=== PATIENT | female | born 1960 | race Caucasian/White ===

== ENCOUNTER 2020-08-09 13:37 | Inpatient (IN) ==
[~2020-08-09 13:37] MED LIST: Buffered Lidocaine 1% SYRIN 1 ml INTRADERM ONE; Lactated Ringers 1000 ml BAG 1,000 ML IV SCH
[2020-08-09] MEDS ORDERED: Clindamycin 900 MG/D5W BAG 900 MG/50 ML BAG IVPB ONE (14:16)
[2020-08-09] MEDS ORDERED: Buffered Lidocaine 1% SYRIN 1 ml INTRADERM ONE (14:16)
[2020-08-09] MEDS ORDERED: Propofol 10 MG/ML 20 ML BTL ONE (15:12)
[2020-08-09] MEDS ORDERED: Lidocaine 2% PF 5 ML VIAL ONE (15:12)
[2020-08-09] MEDS ORDERED: fentaNYL 250 mcg/5 ml 50 MCG/ML 5 ml VIAL (250 MCG) ONE (15:12)
[2020-08-09] MEDS ORDERED: Midazolam 2 mg/2 ml VIAL 1 mg/ml 2 ml VIAL (2 mg) ONE (15:12)
[2020-08-09] MEDS ORDERED: Ondansetron 4 mg VIAL 2 MG/ML 2 ml VIAL ONE (15:12)
[2020-08-09] MEDS ORDERED: Dexamethasone IV 4 MG/ML VIAL 1 ml VIAL ONE (15:12)
[2020-08-09] MEDS ORDERED: Ketamine HCL 50 mg/ml 10 ml VIAL (500 MG) ONE (16:31)
[2020-08-09] MEDS ORDERED: EPHEDrine (Pressors) 50 MG/ML VIAL ONE (16:46)
[2020-08-09] MEDS ORDERED: HYDROmorphone 1 MG/1 ML SYRINGE ONE ×2 (16:52→17:41)
[2020-08-09] MEDS ORDERED: diPHENhydraMINE 25 mg TAB PO PRN (17:09)
[2020-08-09] MEDS ORDERED: Ondansetron ODT 4 mg TAB 4 MG TAB PO PRN (17:09)
[2020-08-09] MEDS ORDERED: Ondansetron 4 mg VIAL 2 MG/ML 2 ml VIAL IV PRN (17:09)
[2020-08-09] MEDS ORDERED: Magnesium Hydroxide LIQ 30 ML UDC PO PRN (17:09)
[2020-08-09] MEDS ORDERED: diPHENhydraMINE IV 50 MG/ML 1 ml VIAL (BENADRYL) IV PRN ×2 (17:09→17:37)
[2020-08-09] MEDS ORDERED: Morphine 2 MG/ML SYRINGE IV PRN (17:15)
[2020-08-09] MEDS ORDERED: Naloxone 0.4 mg VIAL 0.4 mg/ml 1 ml VIAL IV PRN (17:37)
[2020-08-09] MEDS ORDERED: Prochlorperazine 5 mg/ml 2 ml VIAL (10 mg) IV PRN (17:37)
[2020-08-09] MEDS ORDERED: hydrALAZINE 20 mg/ml 1 ML Vial IV IV SLOW PU PRN (17:38)
[2020-08-09] MEDS: HYDROmorphone 1 MG/1 ML SYRINGE IV PRN ×5 (17:42→18:21)
[2020-08-09] MEDS ORDERED: hydrALAZINE 20 mg/ml 1 ML Vial IV ONE (18:07)
[2020-08-09] MEDS ORDERED: Polyethylene Glycol 3350 17 GM PACKET PO PRN (18:17)
[2020-08-09] MEDS: Lactated Ringers 1000 ml BAG 1,000 ML IV SCH (19:45)
[2020-08-09] MEDS: Magnesium Hydroxide LIQ 30 ML UDC PO SCH (20:06)
[2020-08-09] MEDS: Cholecalciferol (VIT D3) 1,000 unit TAB PO SCH (20:06)
[2020-08-09] MEDS: Latanoprost 0.005% 2.5 ml BTL BOTH EYES SCH (21:04)
[2020-08-09] MEDS: Clindamycin 600 MG/D5W BAG 600 MG/50 ML BAG IV SCH (22:04)
[2020-08-10] MEDS: CRANBERRY EXTRACT 500 MG PO SCH ×3 (01:10→20:59)
[2020-08-10 05:59] LABS: Hematocrit 34 % (35-47); Mean Corpuscular HGB Conc 36 g/dL (31-36); Mean Corpuscular Hemoglobin 32 pg (27-31); Mean Corpuscular Volume 88 fL (80-97); Mean Platelet Volume 7.4 fL (7.4-10.4); Platelet Count 323 10^3/uL (150-450); Red Blood Count 3.81 10^6 /uL (3.70-4.87); Red Cell Distribution Width 13 % (10-15); White Blood Count 10.9 10^3/uL (3.5-10.8)
[2020-08-10] MEDS: Clindamycin 600 MG/D5W BAG 600 MG/50 ML BAG IV SCH ×2 (08:44→15:31)
[2020-08-10] MEDS: Vitamin THERAPEUTIC TAB PO SCH (08:56)
[2020-08-10] MEDS: Cholecalciferol (VIT D3) 1,000 unit TAB PO SCH ×2 (08:58→20:58)
[2020-08-10] MEDS: Magnesium Hydroxide LIQ 30 ML UDC PO SCH ×2 (09:01→23:04)
[2020-08-10] MEDS: Lactated Ringers 1000 ml BAG 1,000 ML IV SCH (10:47)
[2020-08-10] MEDS: Enoxaparin 40 MG/0.4 ML SYR SUBCUT SCH (13:12)
[2020-08-10] MEDS: POTASSIUM 75 MG PO SCH (13:22)
[2020-08-10] MEDS: Lactulose 30 ml UDC PO PRN (20:58)
[2020-08-10] MEDS: Latanoprost 0.005% 2.5 ml BTL BOTH EYES SCH (21:04)
[2020-08-11 06:41] LABS: Hematocrit 34 % (35-47); Hemoglobin 11.9 g/dL (12.0-16.0); Mean Corpuscular HGB Conc 35 g/dL (31-36); Mean Corpuscular Hemoglobin 31 pg (27-31); Mean Corpuscular Volume 89 fL (80-97); Mean Platelet Volume 7.6 fL (7.4-10.4); Platelet Count 279 10^3/uL (150-450); Red Blood Count 3.81 10^6 /uL (3.70-4.87); Red Cell Distribution Width 13 % (10-15); White Blood Count 7.5 10^3/uL (3.5-10.8)
[2020-08-11] MEDS: Magnesium Hydroxide LIQ 30 ML UDC PO SCH ×3 (09:44→21:34)
[2020-08-11] MEDS: Vitamin THERAPEUTIC TAB PO SCH (09:45)
[2020-08-11] MEDS: Cholecalciferol (VIT D3) 1,000 unit TAB PO SCH ×2 (09:45→21:33)
[2020-08-11] MEDS: CRANBERRY EXTRACT 500 MG PO SCH ×3 (09:49→22:27)
[2020-08-11] MEDS: Lactulose 30 ml UDC PO PRN ×2 (09:54→21:31)
[2020-08-11] MEDS: Enoxaparin 40 MG/0.4 ML SYR SUBCUT SCH (12:27)
[2020-08-11] MEDS: POTASSIUM 75 MG PO SCH (12:28)
[2020-08-11] MEDS: Dextran 70/Hypromellose Tears Eye Drops 15 ml BTL (for Artificials Tears) BOTH EYES PRN (12:30)
[2020-08-11] MEDS: Latanoprost 0.005% 2.5 ml BTL BOTH EYES SCH (23:00)
[2020-08-12 06:17] LABS: Hematocrit 36 % (35-47); Mean Corpuscular HGB Conc 34 g/dL (31-36); Mean Corpuscular Hemoglobin 31 pg (27-31); Mean Corpuscular Volume 90 fL (80-97); Mean Platelet Volume 7.7 fL (7.4-10.4); Platelet Count 275 10^3/uL (150-450); Red Blood Count 3.93 10^6 /uL (3.70-4.87); Red Cell Distribution Width 13 % (10-15); White Blood Count 6.6 10^3/uL (3.5-10.8)
[2020-08-12] MEDS: Magnesium Hydroxide LIQ 30 ML UDC PO SCH ×3 (08:39→23:36)
[2020-08-12] MEDS: Lactulose 30 ml UDC PO PRN (08:39)
[2020-08-12] MEDS: Cholecalciferol (VIT D3) 1,000 unit TAB PO SCH ×2 (08:40→22:25)
[2020-08-12] MEDS: CRANBERRY EXTRACT 500 MG PO SCH ×2 (08:40→22:23)
[2020-08-12] MEDS: Vitamin THERAPEUTIC TAB PO SCH (08:40)
[2020-08-12] MEDS: Enoxaparin 40 MG/0.4 ML SYR SUBCUT SCH (12:26)
[2020-08-12] MEDS: POTASSIUM 75 MG PO SCH (12:27)
[2020-08-12] MEDS: Hemorrhoidal OINT 1 TUBE PR PRN (22:26)
[2020-08-12] MEDS: Latanoprost 0.005% 2.5 ml BTL BOTH EYES SCH (22:35)
[2020-08-13 06:57] LABS: Hematocrit 36 % (35-47); Hemoglobin 12.3 g/dL (12.0-16.0); Mean Corpuscular HGB Conc 34 g/dL (31-36); Mean Corpuscular Hemoglobin 31 pg (27-31); Mean Corpuscular Volume 90 fL (80-97); Mean Platelet Volume 7.2 fL (7.4-10.4); Platelet Count 278 10^3/uL (150-450); Red Blood Count 4.03 10^6 /uL (3.70-4.87); Red Cell Distribution Width 13 % (10-15); White Blood Count 7.7 10^3/uL (3.5-10.8)
[2020-08-13] MEDS: Cholecalciferol (VIT D3) 1,000 unit TAB PO SCH ×2 (09:57→21:24)
[2020-08-13] MEDS: Lactulose 30 ml UDC PO PRN ×2 (09:57→21:34)
[2020-08-13] MEDS: Vitamin THERAPEUTIC TAB PO SCH (09:57)
[2020-08-13] MEDS: Magnesium Hydroxide LIQ 30 ML UDC PO SCH ×2 (09:58→21:26)
[2020-08-13] MEDS: CRANBERRY EXTRACT 500 MG PO SCH ×2 (09:58→21:24)
[2020-08-13 11:51] LABS: Urine Appearance Cloudy; Urine Bilirubin Negative (Negative); Urine Blood 1+ (Negative); Urine Color Yellow; Urine Glucose Negative (Negative); Urine Ketones Negative (Negative); Urine Nitrite Negative (Negative); Urine Protein Negative (Negative); Urine Specific Gravity 1.005 (1.010-1.030); Urine Urobilinogen Negative (Negative)
[2020-08-13 12:05] LABS: Urine Bacteria 1+ (Absent); Urine Red Blood Cell 1+(3-5/hpf) (Absent); Urine Squamous Epithelial Cell Present (Absent); Urine White Blood Cell 1+(6-10/hpf) (Absent)
[2020-08-13] MEDS: Enoxaparin 40 MG/0.4 ML SYR SUBCUT SCH (12:43)
[2020-08-13] MEDS: POTASSIUM 75 MG PO SCH (12:45)
[2020-08-13] MEDS: Dextran 70/Hypromellose Tears Eye Drops 15 ml BTL (for Artificials Tears) BOTH EYES PRN (14:42)
[2020-08-13] MEDS: Latanoprost 0.005% 2.5 ml BTL BOTH EYES SCH (21:34)
[2020-08-14 06:03] LABS: Hematocrit 36 % (35-47); Hemoglobin 12.6 g/dL (12.0-16.0); Mean Corpuscular HGB Conc 35 g/dL (31-36); Mean Corpuscular Hemoglobin 31 pg (27-31); Mean Corpuscular Volume 90 fL (80-97); Mean Platelet Volume 7.7 fL (7.4-10.4); Platelet Count 279 10^3/uL (150-450); Red Blood Count 4.06 10^6 /uL (3.70-4.87); Red Cell Distribution Width 13 % (10-15); White Blood Count 7.9 10^3/uL (3.5-10.8)
[2020-08-14] MEDS: Lactulose 30 ml UDC PO PRN (08:36)
[2020-08-14] MEDS: Vitamin THERAPEUTIC TAB PO SCH (08:38)
[2020-08-14] MEDS: CRANBERRY EXTRACT 500 MG PO SCH ×2 (08:39→20:16)
[2020-08-14] MEDS: Cholecalciferol (VIT D3) 1,000 unit TAB PO SCH ×2 (08:39→20:14)
[2020-08-14] MEDS: Magnesium Hydroxide LIQ 30 ML UDC PO SCH ×2 (08:56→20:18)
[2020-08-14] MEDS: Hemorrhoidal OINT 1 TUBE PR PRN ×2 (09:46→14:54)
[2020-08-14] MEDS: Enoxaparin 40 MG/0.4 ML SYR SUBCUT SCH (11:57)
[2020-08-14] MEDS: POTASSIUM 75 MG PO SCH (12:00)
[2020-08-14] MEDS: Latanoprost 0.005% 2.5 ml BTL BOTH EYES SCH (20:18)
[2020-08-15] MEDS: Vitamin THERAPEUTIC TAB PO SCH (08:40)
[2020-08-15] MEDS: Cholecalciferol (VIT D3) 1,000 unit TAB PO SCH ×2 (08:40→22:23)
[2020-08-15] MEDS: CRANBERRY EXTRACT 500 MG PO SCH ×2 (08:41→22:24)
[2020-08-15] MEDS: Lactulose 30 ml UDC PO PRN (08:45)
[2020-08-15] MEDS: Magnesium Hydroxide LIQ 30 ML UDC PO SCH ×2 (08:45→22:08)
[2020-08-15] MEDS: Dextran 70/Hypromellose Tears Eye Drops 15 ml BTL (for Artificials Tears) BOTH EYES PRN ×2 (11:49→14:58)
[2020-08-15] MEDS: Enoxaparin 40 MG/0.4 ML SYR SUBCUT SCH (11:49)
[2020-08-15] MEDS: Hemorrhoidal OINT 1 TUBE PR PRN (11:49)
[2020-08-15] MEDS: POTASSIUM 75 MG PO SCH (12:58)
[2020-08-15] MEDS: Latanoprost 0.005% 2.5 ml BTL BOTH EYES SCH (22:26)
[2020-08-16] MEDS: Dextran 70/Hypromellose Tears Eye Drops 15 ml BTL (for Artificials Tears) BOTH EYES PRN ×2 (06:40→12:46)
[2020-08-16] MEDS: Vitamin THERAPEUTIC TAB PO SCH (08:18)
[2020-08-16] MEDS: Cholecalciferol (VIT D3) 1,000 unit TAB PO SCH ×2 (08:18→20:56)
[2020-08-16] MEDS: CRANBERRY EXTRACT 500 MG PO SCH ×2 (08:19→20:56)
[2020-08-16] MEDS: Magnesium Hydroxide LIQ 30 ML UDC PO SCH ×2 (08:19→20:57)
[2020-08-16] MEDS: POTASSIUM 75 MG PO SCH (12:44)
[2020-08-16] MEDS: Enoxaparin 40 MG/0.4 ML SYR SUBCUT SCH (12:46)
[2020-08-16] MEDS: Latanoprost 0.005% 2.5 ml BTL BOTH EYES SCH (21:00)
[2020-08-17] MEDS: Vitamin THERAPEUTIC TAB PO SCH (09:46)
[2020-08-17] MEDS: Cholecalciferol (VIT D3) 1,000 unit TAB PO SCH (09:46)
[2020-08-17] MEDS: CRANBERRY EXTRACT 500 MG PO SCH (09:50)
[2020-08-17] MEDS: Dextran 70/Hypromellose Tears Eye Drops 15 ml BTL (for Artificials Tears) BOTH EYES PRN (09:55)
[2020-08-17] MEDS: Magnesium Hydroxide LIQ 30 ML UDC PO SCH (10:16)
[2020-08-17 11:07] VITALS: BP 142/60
[2020-08-17] MEDS: POTASSIUM 75 MG PO SCH (11:50)
[2020-08-17] MEDS: Enoxaparin 40 MG/0.4 ML SYR SUBCUT SCH (11:55)
[2020-08-17] MEDS ORDERED: Senna TAB 8.6 mg TAB PO SCH (21:00)
== END 2020-08-17 15:15 | DRG 494 ==
LOC: INTOOBSV 13:37 → AA 13:37 → EDSTATUS 14:45 → SSU 18:51
PROVIDERS: ADMIT Orthopaedic Surgery; ATTEND Orthopaedic Surgery

== ENCOUNTER 2024-04-23 07:56 | Observation (INO) ==
[~2024-04-23 07:56] MED LIST changes: -Buffered Lidocaine 1% SYRIN 1 ml INTRADERM ONE; -Lactated Ringers 1000 ml BAG 1,000 ML IV SCH; +NS 0.45% 1000 ml BAG 1,000 ML IV SCH; +Naloxone 0.4 mg VIAL 0.4 mg/ml 1 ml VIAL IV PRN; +Ondansetron 4 mg VIAL 2 MG/ML 2 ml VIAL IV PRN; +ROPIVACAINE 5 MG/ML 30 ML BTL (0.5%) ONE; +Ropivacaine 0.2% 2 MG/ML VIAL ONE
[2024-04-23] MEDS ORDERED: fentaNYL 100 mcg/2 ml 50 MCG/ML VIAL ONE ×2 (08:07→11:31)
[2024-04-23] MEDS ORDERED: Ondansetron 4 mg VIAL 2 MG/ML 2 ml VIAL ONE (08:07)
[2024-04-23] MEDS ORDERED: Lidocaine 2% PF 5 ML VIAL ONE (08:07)
[2024-04-23] MEDS ORDERED: Rocuronium 50 mg VIAL 10 mg/ml 5 ml VIAL (50 mg) ONE ×2 (08:07→08:14)
[2024-04-23] MEDS ORDERED: Propofol 10 MG/ML 20 ML BTL ONE ×2 (08:07→08:14)
[2024-04-23] MEDS ORDERED: Dexamethasone IV 4 MG/ML VIAL 1 ml VIAL ONE (08:07)
[2024-04-23] MEDS ORDERED: Midazolam 5 mg/5 ml VIAL 1 mg/ml 5 ml VIAL (5 mg) ONE (08:07)
[2024-04-23] MEDS ORDERED: ceFAZolin 2 GM PREMIX 2 GM/50 ML BAG ONE (08:42)
[2024-04-23] MEDS: Lactated Ringers 1000 ml BAG 1,000 ML IV SCH ×2 (08:45→16:34)
[2024-04-23] MEDS: Buffered Lidocaine 1% SYRIN 1 ml INTRADERM ONE (08:45)
[2024-04-23] MEDS ORDERED: Bupivacaine 0.25% SDV 30 ML ONE (09:22)
[2024-04-23] MEDS ORDERED: Phenylephrine 40 mcg/mL 10mL (400mcg) SYRINGE ONE (09:43)
[2024-04-23] MEDS ORDERED: ceFAZolin VIAL VIAL ONE (10:10)
[2024-04-23] MEDS: fentaNYL 100 mcg/2 ml 50 MCG/ML VIAL IV PRN (11:32)
[2024-04-23] MEDS ORDERED: Ondansetron ODT 4 mg TAB 4 MG TAB PO PRN (13:06)
[2024-04-23] MEDS ORDERED: Ondansetron 4 mg VIAL 2 MG/ML 2 ml VIAL IV PRN (13:06)
[2024-04-23] MEDS ORDERED: Morphine 2 MG/ML SYRINGE IV PRN (13:06)
[2024-04-23] MEDS ORDERED: Dextran 70/Hypromellose Tears Eye Drops 15 ml BTL (for Artificials Tears) BOTH EYES PRN (13:17)
[2024-04-23 14:19] LABS: Rapid COVID-19 Molecular Undetected (Undetected)
[2024-04-23] MEDS ORDERED: Acetaminophen IV 1 GM/100ML 1,000 MG/100 ML BAG IV ONE (15:11)
[2024-04-23] MEDS: Acetaminophen IV 1 GM/100ML 1,000 MG/100 ML BAG IV ONE (15:15)
[2024-04-23] MEDS: ceFAZolin 1 GM ADVAN 1 GM in NS 0.9% 50 ML 50 ML IVPB SCH (17:53)
[2024-04-23] MEDS: Latanoprost 0.005% 2.5 ml BTL BOTH EYES SCH (20:46)
[2024-04-24 06:01] LABS: Hematocrit 37.6 % (35-45); Hemoglobin 12.5 g/dL (11.5-14.3); Mean Platelet Volume 8.1 fL (7.5-11.2); Platelet Count 217 10^3/uL (150-450)
[2024-04-24 06:44] LABS: Creatinine, Serum 0.56 mg/dL (0.51-0.95); Potassium 4.1 mmol/L (3.5-5.0); eGFR CKD-EPI 102.5 (>60)
[2024-04-24] MEDS: Cholecalciferol (VIT D3) 1,000 unit TAB PO SCH (08:52)
[2024-04-24] MEDS: Vitamin THERAPEUTIC TAB PO SCH (08:53)
[2024-04-25 06:16] LABS: Hematocrit 36.1 % (35-45); Hemoglobin 12.1 g/dL (11.5-14.3); Mean Platelet Volume 8.1 fL (7.5-11.2); Platelet Count 202 10^3/uL (150-450)
[2024-04-25] MEDS: Lactulose 30 ml UDC PO PRN (18:15)
[2024-04-26 08:15] LABS: Hematocrit 38.5 % (35-45); Hemoglobin 13.1 g/dL (11.5-14.3); Mean Platelet Volume 8.2 fL (7.5-11.2); Platelet Count 219 10^3/uL (150-450)
[2024-04-26] MEDS: Nystatin TOP POWDER 15 GM BTL TOPICAL SCH (21:18)
[2024-04-27] MEDS: Magnesium Hydroxide LIQ 30 ML UDC PO PRN (05:42)
[2024-04-27 06:49] LABS: Hematocrit 40.8 % (35-45); Hemoglobin 13.8 g/dL (11.5-14.3); Mean Platelet Volume 8.1 fL (7.5-11.2); Platelet Count 231 10^3/uL (150-450)
[2024-04-28 06:25] LABS: Hematocrit 39.6 % (35-45); Hemoglobin 13.5 g/dL (11.5-14.3); Mean Platelet Volume 8.2 fL (7.5-11.2); Platelet Count 261 10^3/uL (150-450)
[2024-04-30 10:07] VITALS: BP 142/78
== END 2024-04-30 11:10 ==
LOC: OR 07:56 → EDSTATUS 09:00 → SSU 16:23 → INTOOBSV 16:23
PROVIDERS: ADMIT Orthopaedic Surgery; ATTEND Orthopaedic Surgery

== ENCOUNTER 2024-04-30 10:13 | Inpatient (IN) ==
[2024-04-30] MEDS ORDERED: Magnesium Hydroxide LIQ 30 ML UDC PO PRN (13:34)
[2024-04-30] MEDS ORDERED: Senna TAB 8.6 mg TAB PO PRN (13:34)
[2024-04-30] MEDS: Nystatin TOP POWDER 15 GM BTL TOPICAL SCH (20:32)
[2024-05-01] MEDS: Latanoprost 0.005% 2.5 ml BTL BOTH EYES ONE (00:23)
[2024-05-01] MEDS: Latanoprost 0.005% 2.5 ml BTL BOTH EYES SCH (01:15)
[2024-05-01] MEDS: CRANBERRY 15000 MG PO SCH (08:39)
[2024-05-01 10:08] LABS: ABS Eosinophils 0.3 10^3/uL (0.0-0.5); ABS Lymphocytes 1.5 10^3/uL (1.0-4.8); ABS Monocytes 0.8 10^3/uL (0.0-0.9); ABS Neutrophils 5.3 10^3/uL (1.5-7.6); Eosinophil % 3.5 %; Hematocrit 38.3 % (35-45); Hemoglobin 13.1 g/dL (11.5-14.3); Lymphocyte % 19.4 %; Mean Corpuscular Hgb Conc 34.2 g/dL (31-36); Mean Corpuscular Volume 90.7 fL (80-97); Mean Platelet Volume 7.7 fL (7.5-11.2); Platelet Count 252 10^3/uL (150-450); Red Blood Count 4.22 10^6/uL (3.63-4.92); Red Cell Distribution Width 13.1 % (12-17); White Blood Count 7.9 10^3/uL (3.8-11.8)
[2024-05-01 10:40] LABS: Albumin 4.2 g/dL (3.2-5.2); Calcium 9.4 mg/dL (8.6-10.3); Creatinine, Serum 0.6 mg/dL (0.51-0.95); Globulin 2.1 g/dL (2-4); Potassium 4.3 mmol/L (3.5-5.0); Total Bilirubin 0.6 mg/dL (0.2-1.0); Total Protein 6.3 g/dL (6.4-8.9); eGFR CKD-EPI 100.8 (>60)
[2024-05-01] MEDS: Polyethylene Glycol 3350 17 GM PACKET PO SCH (12:26)
[2024-05-01] MEDS: Pneumococcal 20-Valent Conj 0.5 ML SYR Vaccine IM ONE (12:30)
[2024-05-01] MEDS: [UNRECOGNIZED DRUG - REMARK] PO SCH (12:50)
[2024-05-03] MEDS: Lubriderm LOTION 180 ML BTL TOPICAL SCH (21:10)
[2024-05-04] MEDS: Emollient Lotion 480 ml BTL TOPICAL SCH (11:15)
[2024-05-05] MEDS: Enoxaparin 40 MG/0.4 ML SYR SUBCUT SCH (10:25)
[2024-05-05] MEDS: Hemorrhoidal OINT 1 TUBE PR PRN (14:17)
[2024-05-08 06:25] LABS: ABS Eosinophils 0.2 10^3/uL (0.0-0.5); ABS Lymphocytes 1.5 10^3/uL (1.0-4.8); ABS Monocytes 0.8 10^3/uL (0.0-0.9); ABS Neutrophils 4.2 10^3/uL (1.5-7.6); Eosinophil % 3.5 %; Hematocrit 35.9 % (35-45); Hemoglobin 12.2 g/dL (11.5-14.3); Lymphocyte % 21.6 %; Mean Corpuscular Hemoglobin 30.8 pg (27-33); Mean Corpuscular Hgb Conc 33.9 g/dL (31-36); Mean Platelet Volume 7.6 fL (7.5-11.2); Platelet Count 247 10^3/uL (150-450); Red Blood Count 3.95 10^6/uL (3.63-4.92); Red Cell Distribution Width 13.2 % (12-17); White Blood Count 6.7 10^3/uL (3.8-11.8)
[2024-05-08 06:41] LABS: Albumin 3.9 g/dL (3.2-5.2); Albumin/Globulin Ratio 2.1 (1-3); Calcium 9.1 mg/dL (8.6-10.3); Creatinine, Serum 0.67 mg/dL (0.51-0.95); Globulin 1.9 g/dL (2-4); Potassium 4.2 mmol/L (3.5-5.0); Total Bilirubin 0.4 mg/dL (0.2-1.0); Total Protein 5.8 g/dL (6.4-8.9); eGFR CKD-EPI 98.1 (>60)
[2024-05-13 20:32] LABS: Urine Appearance Clear; Urine Bilirubin Negative (Negative); Urine Blood Negative (Negative); Urine Color Light-Yellow; Urine Glucose Negative (Negative); Urine Ketones Negative (Negative); Urine Nitrite Negative (Negative); Urine Protein Negative (Negative); Urine Specific Gravity 1.022 (1.002-1.030); Urine Urobilinogen Negative (Negative)
[2024-05-13 20:36] LABS: Urine Bacteria Absent /HPF (Absent); Urine Red Blood Cell 1+(3-5/hpf) /HPF (0-Trace); Urine Squamous Epithelial Cell Present /HPF (Absent); Urine White Blood Cell 2+(11-20/hpf) /HPF (0-Trace)
[2024-05-15 08:28] LABS: ABS Eosinophils 0.2 10^3/uL (0.0-0.5); ABS Lymphocytes 1.7 10^3/uL (1.0-4.8); ABS Monocytes 0.7 10^3/uL (0.0-0.9); ABS Neutrophils 3.3 10^3/uL (1.5-7.6); Eosinophil % 3.5 %; Hemoglobin 12.9 g/dL (11.5-14.3); Lymphocyte % 28.9 %; Mean Corpuscular Hemoglobin 31.2 pg (27-33); Mean Corpuscular Hgb Conc 34.7 g/dL (31-36); Mean Corpuscular Volume 89.9 fL (80-97); Mean Platelet Volume 7.5 fL (7.5-11.2); Nucleated Red Blood Cells % 0.1 %/100WBC (0.0-0.8); Platelet Count 238 10^3/uL (150-450); Red Blood Count 4.12 10^6/uL (3.63-4.92); Red Cell Distribution Width 13.4 % (12-17)
[2024-05-15 09:04] LABS: Albumin/Globulin Ratio 2.1 (1-3); Calcium 9.3 mg/dL (8.6-10.3); Creatinine, Serum 0.56 mg/dL (0.51-0.95); Globulin 1.9 g/dL (2-4); Potassium 4.1 mmol/L (3.5-5.0); Total Bilirubin 0.4 mg/dL (0.2-1.0); Total Protein 5.9 g/dL (6.4-8.9); eGFR CKD-EPI 102.5 (>60)
[2024-05-19] MEDS: Aspirin EC 325 mg TAB.EC PO SCH (10:13)
[2024-05-20 06:13] VITALS: BP 139/75
[2024-05-21] MEDS ORDERED: Aspirin EC 325 mg TAB.EC PO SCH (09:00)
== END 2024-05-20 12:35 | disposition swing bed (61) | DRG 945 ==
LOC: PMRU 12:02
PROVIDERS: ADMIT Physical Medicine & Rehabilitation; ATTEND Physical Medicine & Rehabilitation